=== PATIENT | male | born 1975 | race African-American/Black ===

== ENCOUNTER 2017-07-24 09:49 | Emergency (ER) | payer SELFPAY ==
[2017-07-24 09:57] VITALS: BP 138/74
[2017-07-24] MEDS ORDERED: ASPIRIN 81 MG TABLET, CHEWABLE PO ONE (10:33)
--- NOTE | 2017-07-24 10:34 | ER Document Report ---
ED Medical Screen (RME) - General Chief Complaint: Chest Pain Stated Complaint: CHEST PAIN Time Seen by Provider: 07/24/17 10:32 Notes: Patient reports approximately 3 days of left sided chest pain goes to his back. Is also been lightheaded and dizzy with it. He states he did have a stress test approximate 10 years ago that was normal. No workup since. No chronic medical conditions. No family history. Patient states he does not smoke. He states that the pain does get worse with movement. TRAVEL OUTSIDE OF THE [place] IN LAST 30 DAYS: No - Related Data Allergies/Adverse Reactions: No Known Allergies Allergy (Verified 07/24/17 09:57) Past Medical History - Social History Chew tobacco use (# tins/day): No Frequency of alcohol use: Occasional Drug Abuse: None Renal/ Medical History: Denies: Hx Peritoneal Dialysis Physical Exam - Vital signs Vitals: Temp Pulse Resp BP Pulse Ox 97.9 F 63 16 138/74 H 99 07/24/17 09:55 07/24/17 09:55 07/24/17 09:55 07/24/17 09:55 07/24/17 09:55 Course - Vital Signs Vital signs: Temp Pulse Resp BP Pulse Ox 97.9 F 63 16 138/74 H 99 07/24/17 09:55 07/24/17 09:55 07/24/17 09:55 07/24/17 09:55 07/24/17 09:55
[2017-07-24 11:10] LABS: ABSOLUTE EOSINOPHILS # (AUTO) 0.1 10^3/uL (0.0-0.6); ABSOLUTE MONOCYTES (AUTO) 0.4 10^3/uL (0.1-1.4); ABSOLUTE NEUT (AUTO) 1.8 10^3/uL (1.7-8.2); BASOPHILS % (AUTO) 0.9 % (0-2); HEMATOCRIT 41.2 % (37.9-51.0); HEMOGLOBIN 14.1 g/dL (13.5-17.0); HGB HCT DIFFERENCE 1.1; LYMPHOCYTES % (AUTO) 45.3 % (13-45); MEAN CORPUSCULAR HEMOGLOBIN 30.1 pg (27.0-33.4); MEAN CORPUSCULAR HGB CONC 34.3 g/dL (32.0-36.0); MEAN CORPUSCULAR VOLUME 88 fl (80-97); MONOCYTES % (AUTO) 9.2 % (3-13); RED BLOOD COUNT 4.69 10^6/uL (4.35-5.55); RED CELL DISTRIBUTION WIDTH 13.2 % (11.5-14.0); SEGMENTED NEUTROPHILS % (AUTO) 42.6 % (42-78); WHITE BLOOD COUNT 4.3 10^3/uL (4.0-10.5)
[2017-07-24 11:32] LABS: ALANINE AMINOTRANSFERASE 29 U/L (21-72); ALBUMIN 4.5 g/dL (3.5-5.0); ALKALINE PHOSPHATASE 66 U/L (38-126); ANION GAP 12 (5-19); ASPARTATE AMINO TRANSFERASE 28 U/L (17-59); BILIRUBIN,DIRECT 0.3 mg/dL (0.0-0.4); BILIRUBIN,TOTAL 1.1 mg/dL (0.2-1.3); BLOOD UREA NITROGEN 20 mg/dL (7-20); CARBON DIOXIDE 27 mmol/L (22-30); CHLORIDE 104 mmol/L (98-107); CREATININE RESULT 1.03 mg/dL (0.52-1.25); GLUCOSE 96 mg/dL (75-110); POTASSIUM 4.3 mmol/L (3.6-5.0); SODIUM 142.9 mmol/L (137-145); TOTAL PROTEIN 7.8 g/dL (6.3-8.2)
--- NOTE | 2017-07-24 11:32 | ER Document Report ---
ED General - General Mode of Arrival: Ambulatory Information source: Patient TRAVEL OUTSIDE OF THE [place] IN LAST 30 DAYS: No - HPI Onset: Just prior to arrival Associated symptoms: None <ROSS KAMARA - Last Filed: 07/24/17 13:39> <BETY QUINTANILLA - Last Filed: 07/24/17 13:46> - General Chief Complaint: Chest Pain Stated Complaint: CHEST PAIN Time Seen by Provider: 07/24/17 10:32 Notes: Patient is a 41-year-old male presents to the emergency department today with complaints of left-sided chest pain for the last 3 or 4 days. Patient states today the pain radiated to his back, neck, and arm. 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 Patient states that his pain is exacerbated with movement of the left upper extremity, movement of his torso, and breathing. Patient states his pain is relieved by sitting still. Patient has had associated nausea and dizziness. Patient denies coronary artery disease or family history of coronary artery disease. Patient complains of associated nausea and dizziness. (ROSS KAMARA) - Related Data Allergies/Adverse Reactions: No Known Allergies Allergy (Verified 07/24/17 11:41) Home Medications: Current Home Medications Ibuprofen [Advil] 200 mg PO PRN PRN 07/24/17 [History] Past Medical History - General Information source: Patient - Social History Smoking Status: Never Smoker Cigarette use (# per day): No Chew tobacco use (# tins/day): No Frequency of alcohol use: Occasional Drug Abuse: None Lives with: Family Family History: Reviewed & Not Pertinent - Past Medical History Cardiac Medical History: Reports: Hx Hypercholesterolemia - controlled with diet Surgical Hx: Negative <ROSS KAMARA - Last Filed: 07/24/17 13:39> Review of Systems - Review of Systems Constitutional: No symptoms reported EENT: No symptoms reported Cardiovascular: See HPI, Chest pain - reproducible with movement of left arm, breathing, and torso movement, Dizziness Respiratory: See HPI, Hurts to breathe Gastrointestinal: No symptoms reported Genitourinary: No symptoms reported Male Genitourinary: No symptoms reported Musculoskeletal: No symptoms reported Skin: No symptoms reported Hematologic/Lymphatic: No symptoms reported Neurological/Psychological: No symptoms reported -: Yes All other systems reviewed and negative <ROSS KAMARA - Last Filed: 07/24/17 13:39> Physical Exam <ROSS KAMARA - Last Filed: 07/24/17 13:39> <BETY QUINTANILLA - Last Filed: 07/24/17 13:46> - Vital signs Vitals: Temp Pulse Resp BP Pulse Ox 97.9 F 63 16 138/74 H 99 07/24/17 09:55 07/24/17 09:55 07/24/17 09:55 07/24/17 09:55 07/24/17 09:55 - Notes Notes: Physical Exam: General: Alert, appears well. HEENT: Normocephalic. Atraumatic. PERRL. Extraocular movements intact. Oropharynx clear. Neck: Supple. Non-tender. Respiratory: No respiratory distress. Clear and equal breath sounds bilaterally. Cardiovascular: Regular rate and rhythm. Abdominal: Normal Inspection. Non-tender. No distension. Normal Bowel Sounds. Back: Left rhomboid tenderness with palpation, right posterior trapezius musculature tenderness with palpation. No deformity or step off. Extremities: Moves all four extremities. Upper extremities: Pain with anterior flexion against resistance of left shoulder. Normal ROM. Lower extremities: Normal inspection. No edema. Normal ROM. Neurological: Normal cognition. AAOx4. Normal speech. Psychological: Normal affect. Normal Mood. Skin: Warm. Dry. Normal color. (ROSS KAMARA) Course - Laboratory Result Diagrams: 07/24/17 10:50 07/24/17 10:50 <ROSS KAMARA - Last Filed: 07/24/17 13:39> - Laboratory Result Diagrams: 07/24/17 10:50 07/24/17 10:50 - EKG Interpretation by Or Rate: Normal - Rate 61, normal intervals, QRS normal radiation, no evidence of ischemia. <YINGBETY SOFIA - Last Filed: 07/24/17 13:46> - Vital Signs Vital signs: Temp Pulse Resp BP Pulse Ox 97.9 F 63 16 138/74 H 99 07/24/17 09:55 07/24/17 09:55 07/24/17 09:55 07/24/17 09:55 07/24/17 09:55 - Laboratory Laboratory results interpreted by me: 07/24/17 10:50 Lymphocytes % 45.3 H Discharge <ROSS KAMARA - Last Filed: 07/24/17 13:39> <BETY QUINTANILLA - Last Filed: 07/24/17 13:46> - Discharge Clinical Impression: Chest wall pain Condition: Stable Disposition: HOME, SELF-CARE Instructions: Chest Wall Pain ([facility]) Prescriptions: Methocarbamol [Robaxin 750 mg Tablet] 750 - 1,500 mg PO Q8HP PRN #20 tablet PRN Reason: For Pain Scribe Documentation - Scribe Written by Scribe:: Abdulkadir Simeon, 07/24/2017 1136 acting as scribe for :: Ying <ROSS KAMARA - Last Filed: 07/24/17 13:39>
--- NOTE | 2017-07-24 11:51 | RADIOLOGY REPORT (SQ) ---
EXAM DESCRIPTION: CHEST PA/LAT COMPLETED DATE/TIME: 07/24/2017 11:20 am REASON FOR STUDY: pain COMPARISON: None. EXAM PARAMETERS: NUMBER OF VIEWS: two views TECHNIQUE: Digital Frontal and Lateral radiographic views of the chest acquired. RADIATION DOSE: NA LIMITATIONS: none FINDINGS: LUNGS AND PLEURA: No opacities, masses or pneumothorax. No pleural effusion. MEDIASTINUM AND HILAR STRUCTURES: No masses or contour abnormalities. HEART AND VASCULAR STRUCTURES: Heart normal size. No evidence for failure. BONES: No acute findings. HARDWARE: None in the chest. OTHER: No other significant finding. IMPRESSION: NO SIGNIFICANT RADIOGRAPHIC FINDING IN THE CHEST. TECHNICAL DOCUMENTATION: JOB ID: [id number] [employer]- All Rights Reserved
--- NOTE | 2017-07-24 14:01 | EKG REPORT ---
SEVERITY:- NORMAL ECG - SINUS RHYTHM : Confirmed by: Gordo Morgan MD 24-Jul-2017 14:00:44
== END 2017-07-24 14:01 | disposition home or self-care (01) ==
LOC: ER 09:49
DX: R07.89 Other chest pain (principal); M54.9 Dorsalgia, unspecified; M54.2 Cervicalgia; I25.10 Atherosclerotic heart disease of native coronary artery without angina pectoris; R11.0 Nausea; R42 Dizziness and giddiness; Z79.899 Other long term (current) drug therapy
CPT/HCPCS: 36415; 71020; 80053; 84484; 85025; 93005; 93010; 99285